=== PATIENT | male | born 1945 ===

== ENCOUNTER 2023-07-31 11:15 | Inpatient (IN) | payer OTHER ==
[~2023-07-31] VITALS: Ht 152.4 cm; Wt 0.5 kg
[2023-07-31] MEDS ORDERED: XANAX1 MG PO (13:36)
[2023-08-05] MEDS ORDERED: LATANOPROST2.5 ML (08:04)
[2023-08-05] MEDS ORDERED: ALPRAZOLAM1 MG (08:05)
[2023-08-05 12:18] LABS: HEMATOCRIT 46.6 % (39.0-48.0); HEMOGLOBIN 16.1 g/dL (13-16.00); MEAN CELL VOLUME 91.9 fL (80.0-100.00); MEAN CORPUSCULAR HEMOGLOBIN 31.7 pg (27.00-32.0); MEAN CORPUSCULAR HGB CONC 34.6 g/dl (32.0-36.0); PLATELET COUNT 187 K/uL (150-450); RED BLOOD COUNT 5.07 M/uL (4.00-6.00); RED CELL DISTRIBUTION WIDTH 13.6 % (11.5-14.5)
[2023-08-05 12:48] LABS: ALBUMIN 3.4 gm/dL (3.4-5.0); CALCIUM 8.7 mg/dL (8.5-10.1); CREATININE SERUM 0.99 mg/dL (0.70-1.30); GFR 73.3; MAGNESIUM 1.8 mg/dL (1.8-2.4); PHOSPHOROUS 3.1 mg/dL (2.5-4.9); POTASSIUM 4.49 mEq/L (3.5-5.1)
[2023-08-06 07:03] LABS: HEMATOCRIT 44.5 % (39.0-48.0); HEMOGLOBIN 15.3 g/dL (13-16.00); MEAN CELL VOLUME 94.2 fL (80.0-100.00); MEAN CORPUSCULAR HEMOGLOBIN 32.5 pg (27.00-32.0); MEAN CORPUSCULAR HGB CONC 34.5 g/dl (32.0-36.0); PLATELET COUNT 151 K/uL (150-450); RED BLOOD COUNT 4.72 M/uL (4.00-6.00); RED CELL DISTRIBUTION WIDTH 13.7 % (11.5-14.5)
[2023-08-06 07:44] LABS: ALBUMIN 3.2 gm/dL (3.4-5.0); CALCIUM 8.2 mg/dL (8.5-10.1); CREATININE SERUM 1.02 mg/dL (0.70-1.30); GFR 70.82; MAGNESIUM 1.9 mg/dL (1.8-2.4); POTASSIUM 4.13 mEq/L (3.5-5.1)
[2023-08-06 08:03] LABS: PHOSPHOROUS 1.9 mg/dL (2.5-4.9)
[2023-08-07 08:13] LABS: HEMATOCRIT 39.7 % (39.0-48.0); HEMOGLOBIN 13.9 g/dL (13-16.00); MEAN CELL VOLUME 91.9 fL (80.0-100.00); MEAN CORPUSCULAR HEMOGLOBIN 32.2 pg (27.00-32.0); RED BLOOD COUNT 4.32 M/uL (4.00-6.00); RED CELL DISTRIBUTION WIDTH 13.5 % (11.5-14.5)
[2023-08-07 08:22] LABS: PLATELET COUNT 130 K/uL (150-450)
[2023-08-07 08:41] LABS: CALCIUM 7.6 mg/dL (8.5-10.1); CREATININE SERUM 0.8 mg/dL (0.70-1.30); GFR 93.73; MAGNESIUM 1.7 mg/dL (1.8-2.4); POTASSIUM 3.91 mEq/L (3.5-5.1)
[2023-08-07 09:36] LABS: PHOSPHOROUS 1.2 mg/dL (2.5-4.9)
[2023-08-08 06:38] LABS: HEMATOCRIT 43.4 % (39.0-48.0); HEMOGLOBIN 15.1 g/dL (13-16.00); MEAN CORPUSCULAR HEMOGLOBIN 32.7 pg (27.00-32.0); MEAN CORPUSCULAR HGB CONC 34.8 g/dl (32.0-36.0); PLATELET COUNT 172 K/uL (150-450); RED BLOOD COUNT 4.62 M/uL (4.00-6.00); RED CELL DISTRIBUTION WIDTH 13.3 % (11.5-14.5)
[2023-08-08 07:40] LABS: MANUAL PLATELET COUNT 238
[2023-08-09 08:11] LABS: HEMATOCRIT 48.4 % (39.0-48.0); HEMOGLOBIN 16.8 g/dL (13-16.00); MEAN CELL VOLUME 92.1 fL (80.0-100.00); MEAN CORPUSCULAR HEMOGLOBIN 31.9 pg (27.00-32.0); MEAN CORPUSCULAR HGB CONC 34.7 g/dl (32.0-36.0); PLATELET COUNT 235 K/uL (150-450); RED BLOOD COUNT 5.25 M/uL (4.00-6.00); RED CELL DISTRIBUTION WIDTH 13.8 % (11.5-14.5)
[2023-08-09 08:42] LABS: CALCIUM 8.3 mg/dL (8.5-10.1); CREATININE SERUM 1.44 mg/dL (0.70-1.30); GFR 47.57; MAGNESIUM 2.1 mg/dL (1.8-2.4); PHOSPHOROUS 2.1 mg/dL (2.5-4.9); POTASSIUM 4.09 mEq/L (3.5-5.1)
[2023-08-09 12:03] LABS: ABG PH 7.463 (7.35-7.45); ABG pCO2 25.6 mmHg (35-45)
[2023-08-09 12:04] LABS: ABG PO2 57.9 mmHg (80-100); BICARBONATE 17.9 mmol/l (23-25); SaO2 91.1 %; Tco2 18.7 mmol/l; allen test SATISFACTORY; o2 28 %; puncture site RADIAL LEFT
[2023-08-09 13:42] LABS: T4 TOTAL 6.83 UG/DL (4.5-12.1); TSH 1.09 uIU/mL (0.358-3.74)
[2023-08-10 03:34] LABS: ABG PH 7.496 (7.35-7.45); ABG pCO2 31.8 mmHg (35-45)
[2023-08-10 03:35] LABS: ABG PO2 79.9 mmHg (80-100)
[2023-08-10 03:37] LABS: BASE EXCESS 1.6 mmol/l; SaO2 96.8 %
[2023-08-10 03:42] LABS: allen test SATISFACTORY; o2 50 %; puncture site RADIAL RIGHT
[2023-08-10 08:00] LABS: HEMATOCRIT 43.7 % (39.0-48.0); HEMOGLOBIN 15.1 g/dL (13-16.00); MEAN CELL VOLUME 93.3 fL (80.0-100.00); MEAN CORPUSCULAR HEMOGLOBIN 32.2 pg (27.00-32.0); MEAN CORPUSCULAR HGB CONC 34.5 g/dl (32.0-36.0); PLATELET COUNT 174 K/uL (150-450); RED BLOOD COUNT 4.69 M/uL (4.00-6.00)
[2023-08-10 08:31] LABS: ABG PH 7.539 (7.35-7.45); ABG PO2 78.4 mmHg (80-100); ABG pCO2 30.3 mmHg (35-45); BASE EXCESS 3.5 mmol/l; BICARBONATE 25.2 mmol/l (23-25); SaO2 97.1 %; Tco2 26.2 mmol/l; allen test SATISFACTORY; puncture site RADIAL LEFT
[2023-08-10 08:32] LABS: o2 50 %
[2023-08-10 08:47] LABS: CALCIUM 7.7 mg/dL (8.5-10.1); CREATININE SERUM 1.73 mg/dL (0.70-1.30); GFR 38.49; MAGNESIUM 2.5 mg/dL (1.8-2.4); PHOSPHOROUS 2.8 mg/dL (2.5-4.9); POTASSIUM 3.34 mEq/L (3.5-5.1)
[2023-08-11 08:20] LABS: HEMATOCRIT 40.7 % (39.0-48.0); HEMOGLOBIN 14.1 g/dL (13-16.00); MEAN CORPUSCULAR HEMOGLOBIN 31.9 pg (27.00-32.0); MEAN CORPUSCULAR HGB CONC 34.7 g/dl (32.0-36.0); PLATELET COUNT 150 K/uL (150-450); RED BLOOD COUNT 4.43 M/uL (4.00-6.00); RED CELL DISTRIBUTION WIDTH 13.9 % (11.5-14.5)
[2023-08-11 08:25] LABS: ABG PH 7.531 (7.35-7.45); ABG PO2 164.7 mmHg (80-100); BASE EXCESS 5.4 mmol/l; BICARBONATE 27.8 mmol/l (23-25); SaO2 99.7 %
[2023-08-11 08:26] LABS: Tco2 28.9 mmol/l; allen test SATISFACTORY; o2 100 %; puncture site RADIAL RIGHT
[2023-08-11 08:57] LABS: CALCIUM 7.6 mg/dL (8.5-10.1); CREATININE SERUM 1.37 mg/dL (0.70-1.30); GFR 50.38; MAGNESIUM 2.8 mg/dL (1.8-2.4); PHOSPHOROUS 2.8 mg/dL (2.5-4.9); POTASSIUM 3.43 mEq/L (3.5-5.1)
[2023-08-12 06:49] LABS: HEMATOCRIT 41.2 % (39.0-48.0); HEMOGLOBIN 14.1 g/dL (13-16.00); MEAN CORPUSCULAR HEMOGLOBIN 31.8 pg (27.00-32.0); MEAN CORPUSCULAR HGB CONC 34.2 g/dl (32.0-36.0); RED BLOOD COUNT 4.43 M/uL (4.00-6.00); RED CELL DISTRIBUTION WIDTH 13.9 % (11.5-14.5)
[2023-08-12 06:57] LABS: PLATELET COUNT 122 K/uL (150-450)
[2023-08-12 07:24] LABS: ALBUMIN 1.8 gm/dL (3.4-5.0); BILIRUBIN TOTAL 0.58 mg/dL (0.3-1.2); BILIRUBIN,CONJUGATED 0.18 mg/dL (0.0-0.2); BILIRUBIN,UNCONJUGATED 0.4 mg/dL (0.0-0.6); CALCIUM 7.6 mg/dL (8.5-10.1); CREATININE SERUM 1.16 mg/dL (0.70-1.30); GFR 61.05; MAGNESIUM 2.9 mg/dL (1.8-2.4); PHOSPHOROUS 3.4 mg/dL (2.5-4.9); POTASSIUM 3.81 mEq/L (3.5-5.1); TOTAL PROTEIN 4.5 gm/dL (6.4-8.2)
[2023-08-12 07:37] LABS: C-REACTIVE PROTEIN 7.78 MG/DL (0.00-0.29); CHOL HDL RATIO 6.5 (0-5.0)
[2023-08-12 08:26] LABS: INR 1.04; PARTIAL THROMBOPLASTIN TIME 28.5 SECONDS (22.0-34.0); PROTHROMBIN TIME 10.9 SECONDS (9.0-11.5)
[2023-08-12 10:27] LABS: UREA CLEARANCE 29.9 ML/MIN
[2023-08-12 10:54] LABS: ABG pCO2 40.5 mmHg (35-45)
[2023-08-12 10:55] LABS: BASE EXCESS -5.3 mmol/l; BICARBONATE 20.4 mmol/l (23-25); SaO2 97.3 %; Tco2 21.6 mmol/l
[2023-08-12 10:56] LABS: allen test SATISFACTORY; o2 70 %; puncture site RADIAL LEFT
[2023-08-13 07:14] LABS: HEMATOCRIT 38.7 % (39.0-48.0); HEMOGLOBIN 13.4 g/dL (13-16.00); MEAN CELL VOLUME 92.9 fL (80.0-100.00); MEAN CORPUSCULAR HGB CONC 34.5 g/dl (32.0-36.0); RED BLOOD COUNT 4.17 M/uL (4.00-6.00); RED CELL DISTRIBUTION WIDTH 14.2 % (11.5-14.5)
[2023-08-13 08:28] LABS: CALCIUM 7.2 mg/dL (8.5-10.1); CREATININE SERUM 1.01 mg/dL (0.70-1.30); GFR 71.63; MAGNESIUM 2.7 mg/dL (1.8-2.4); PHOSPHOROUS 2.9 mg/dL (2.5-4.9); POTASSIUM 3.76 mEq/L (3.5-5.1)
[2023-08-13 09:35] LABS: PLATELET COUNT 115 K/uL (150-450)
[2023-08-13 10:30] LABS: ABG PH 7.498 (7.35-7.45); ABG PO2 92.4 mmHg (80-100); ABG pCO2 37.2 mmHg (35-45); BICARBONATE 28.3 mmol/l (23-25); Tco2 29.4 mmol/l; allen test SATISFACTORY; o2 50 %; puncture site RADIAL LEFT
[2023-08-14 10:15] LABS: HEMATOCRIT 39.1 % (39.0-48.0); HEMOGLOBIN 13.3 g/dL (13-16.00); MEAN CELL VOLUME 93.1 fL (80.0-100.00); MEAN CORPUSCULAR HEMOGLOBIN 31.6 pg (27.00-32.0); RED CELL DISTRIBUTION WIDTH 14.2 % (11.5-14.5)
[2023-08-14 10:28] LABS: CALCIUM 7.3 mg/dL (8.5-10.1); CREATININE SERUM 1.01 mg/dL (0.70-1.30); GFR 71.63; MAGNESIUM 2.7 mg/dL (1.8-2.4); POTASSIUM 4.14 mEq/L (3.5-5.1)
[2023-08-14 10:32] LABS: PLATELET COUNT 129 K/uL (150-450)
[2023-08-14 11:41] LABS: ABG PH 7.482 (7.35-7.45); ABG PO2 73.5 mmHg (80-100); ABG pCO2 37.2 mmHg (35-45); BASE EXCESS 3.8 mmol/l; BICARBONATE 27.2 mmol/l (23-25); SaO2 95.9 %
[2023-08-14 11:42] LABS: Tco2 28.4 mmol/l; allen test SATISFACTORY; puncture site RADIAL LEFT
[2023-08-14 11:43] LABS: o2 40 %
[2023-08-15 09:35] LABS: ABG PH 7.492 (7.35-7.45); ABG PO2 96.1 mmHg (80-100); ABG pCO2 34.5 mmHg (35-45); SaO2 98.1 %
[2023-08-15 09:36] LABS: BASE EXCESS 2.9 mmol/l; BICARBONATE 25.8 mmol/l (23-25); Tco2 26.8 mmol/l
[2023-08-15 09:37] LABS: o2 40 %
[2023-08-15 09:38] LABS: allen test SATISFACTORY; puncture site RADIAL LEFT
[2023-08-15 12:36] LABS: ABG PH 7.469 (7.35-7.45); ABG PO2 84.8 mmHg (80-100); ABG pCO2 36.2 mmHg (35-45); BASE EXCESS 2.3 mmol/l; BICARBONATE 25.7 mmol/l (23-25); SaO2 97.1 %; Tco2 26.8 mmol/l
[2023-08-15 12:37] LABS: allen test SATISFACTORY; o2 50 %; puncture site RADIAL LEFT
[2023-08-16 07:54] LABS: BILIRUBIN TOTAL 0.76 mg/dL (0.3-1.2); CALCIUM 7.8 mg/dL (8.5-10.1); CREATININE SERUM 0.84 mg/dL (0.70-1.30); GFR 88.6; GLOBULINA 2.8 G/DL (2.4-3.5); MAGNESIUM 2.4 mg/dL (1.8-2.4); POTASSIUM 4.54 mEq/L (3.5-5.1); TOTAL PROTEIN 4.8 gm/dL (6.4-8.2)
[2023-08-16 07:55] LABS: HEMATOCRIT 43.7 % (39.0-48.0); HEMOGLOBIN 14.7 g/dL (13-16.00); MEAN CELL VOLUME 93.2 fL (80.0-100.00); MEAN CORPUSCULAR HEMOGLOBIN 31.3 pg (27.00-32.0); MEAN CORPUSCULAR HGB CONC 33.6 g/dl (32.0-36.0); PLATELET COUNT 167 K/uL (150-450); RED BLOOD COUNT 4.69 M/uL (4.00-6.00); RED CELL DISTRIBUTION WIDTH 13.9 % (11.5-14.5)
[2023-08-16 21:46] LABS: PH,URINE 5.5; URINE BILIRRUBIN SMALL (NEGATIVE); URINE BLOOD LARGE; URINE GLUCOSE NEGATIVE (NEGATIVE); URINE LEUKOCYTE NEGATIVE; URINE NITRATE NEGATIVE; URINE PROTEIN 30 (NEGATIVE); URINE UROBILINOGEN 0.2 E.U./dl
[2023-08-16 21:53] LABS: URINE APPEARANCE SL CLOUDY; URINE COLOR YELLOW
[2023-08-16 21:54] LABS: URINE MUCUS MODERATE; URINE RBC LOADED /HPF
[2023-08-16 21:55] LABS: URINE BACTERIA MODERATE
[2023-08-16 21:58] LABS: URINE CRYSTALS MANY /HPF; URINE EPITHELIAL CELLS 0-4 /HPF
[2023-08-16 22:01] LABS: URINE YEAST FEW /hpf
[2023-08-16 22:11] LABS: URINE WBC 0-2 /hpf
[2023-08-18 07:55] LABS: ALBUMIN 1.9 gm/dL (3.4-5.0); BILIRUBIN TOTAL 0.59 mg/dL (0.3-1.2); CALCIUM 7.8 mg/dL (8.5-10.1); CREATININE SERUM 0.83 mg/dL (0.70-1.30); GFR 89.84; GLOBULINA 2.7 G/DL (2.4-3.5); POTASSIUM 4.68 mEq/L (3.5-5.1); TOTAL PROTEIN 4.6 gm/dL (6.4-8.2)
[2023-08-18 07:56] LABS: HEMATOCRIT 39.9 % (39.0-48.0); HEMOGLOBIN 13.5 g/dL (13-16.00); MEAN CELL VOLUME 93.4 fL (80.0-100.00); MEAN CORPUSCULAR HEMOGLOBIN 31.7 pg (27.00-32.0); MEAN CORPUSCULAR HGB CONC 33.9 g/dl (32.0-36.0); PLATELET COUNT 148 K/uL (150-450); RED BLOOD COUNT 4.27 M/uL (4.00-6.00); RED CELL DISTRIBUTION WIDTH 13.9 % (11.5-14.5)
[2023-08-18 08:44] LABS: INR 1.04; PARTIAL THROMBOPLASTIN TIME 30.3 SECONDS (22.0-34.0); PROTHROMBIN TIME 10.9 SECONDS (9.0-11.5)
[2023-08-19 07:54] LABS: INR 1.05; PARTIAL THROMBOPLASTIN TIME 28.5 SECONDS (22.0-34.0)
[2023-08-19 07:56] LABS: ALBUMIN 1.9 gm/dL (3.4-5.0); BILIRUBIN TOTAL 0.54 mg/dL (0.3-1.2); BILIRUBIN,CONJUGATED 0.15 mg/dL (0.0-0.2); BILIRUBIN,UNCONJUGATED 0.39 mg/dL (0.0-0.6); CALCIUM 7.8 mg/dL (8.5-10.1); CHOL HDL RATIO 6.6 (0-5.0); CREATININE SERUM 0.72 mg/dL (0.70-1.30); GFR 105.85; GLOBULINA 2.7 G/DL (2.4-3.5); MAGNESIUM 2.5 mg/dL (1.8-2.4); POTASSIUM 4.73 mEq/L (3.5-5.1); TOTAL PROTEIN 4.6 gm/dL (6.4-8.2)
[2023-08-19 08:14] LABS: HEMOGLOBIN 13.1 g/dL (13-16.00); MEAN CELL VOLUME 94.5 fL (80.0-100.00); MEAN CORPUSCULAR HEMOGLOBIN 32.4 pg (27.00-32.0); MEAN CORPUSCULAR HGB CONC 34.3 g/dl (32.0-36.0); PLATELET COUNT 172 K/uL (150-450); RED BLOOD COUNT 4.03 M/uL (4.00-6.00); RED CELL DISTRIBUTION WIDTH 13.7 % (11.5-14.5)
[2023-08-19 13:35] LABS: UREA CLEARANCE 44.8 ML/MIN
[2023-08-20 11:09] LABS: HEMATOCRIT 38.4 % (39.0-48.0); HEMOGLOBIN 12.9 g/dL (13-16.00); MEAN CELL VOLUME 94.2 fL (80.0-100.00); MEAN CORPUSCULAR HEMOGLOBIN 31.7 pg (27.00-32.0); MEAN CORPUSCULAR HGB CONC 33.7 g/dl (32.0-36.0); PLATELET COUNT 190 K/uL (150-450); RED BLOOD COUNT 4.08 M/uL (4.00-6.00); RED CELL DISTRIBUTION WIDTH 13.4 % (11.5-14.5)
[2023-08-20 11:22] LABS: CALCIUM 7.4 mg/dL (8.5-10.1); CREATININE SERUM 0.77 mg/dL (0.70-1.30); GFR 97.96; MAGNESIUM 2.3 mg/dL (1.8-2.4); POTASSIUM 5.19 mEq/L (3.5-5.1)
[2023-08-21 07:37] LABS: HEMATOCRIT 37.5 % (39.0-48.0); HEMOGLOBIN 12.7 g/dL (13-16.00); MEAN CELL VOLUME 93.6 fL (80.0-100.00); MEAN CORPUSCULAR HEMOGLOBIN 31.7 pg (27.00-32.0); MEAN CORPUSCULAR HGB CONC 33.8 g/dl (32.0-36.0); PLATELET COUNT 178 K/uL (150-450); RED BLOOD COUNT 4.01 M/uL (4.00-6.00); RED CELL DISTRIBUTION WIDTH 13.4 % (11.5-14.5)
[2023-08-21 08:02] LABS: CREATININE SERUM 0.76 mg/dL (0.70-1.30); GFR 99.45; MAGNESIUM 2.2 mg/dL (1.8-2.4); PHOSPHOROUS 3.6 mg/dL (2.5-4.9); POTASSIUM 4.73 mEq/L (3.5-5.1)
[2023-08-23 06:13] LABS: HEMATOCRIT 37.6 % (39.0-48.0); HEMOGLOBIN 12.9 g/dL (13-16.00); MEAN CELL VOLUME 93.7 fL (80.0-100.00); MEAN CORPUSCULAR HEMOGLOBIN 32.1 pg (27.00-32.0); MEAN CORPUSCULAR HGB CONC 34.3 g/dl (32.0-36.0); PLATELET COUNT 193 K/uL (150-450); RED BLOOD COUNT 4.01 M/uL (4.00-6.00); RED CELL DISTRIBUTION WIDTH 13.8 % (11.5-14.5)
[2023-08-23 06:55] LABS: CALCIUM 7.9 mg/dL (8.5-10.1); CREATININE SERUM 0.83 mg/dL (0.70-1.30); GFR 89.84; PHOSPHOROUS 2.9 mg/dL (2.5-4.9); POTASSIUM 4.64 mEq/L (3.5-5.1)
[2023-08-23] MEDS ORDERED: ALPRAZOLAM1 MG PO (13:34)
[2023-08-23] MEDS ORDERED: HYOSCYAMINE0.125 M1 SL (13:34)
[2023-08-23] MEDS ORDERED: FAMOTIDINE20 MG PO (13:34)
[2023-08-23] MEDS ORDERED: LOPRESSOR25 MG PO (13:34)
[2023-08-23] MEDS ORDERED: TAMS0.4C PO (13:34)
== END 2023-08-23 18:59 | DRG 329 ==
LOC: O/R 08-05 05:17 → SURH 08-05 05:17 → ICU 08-09 21:44 → SURH 08-21 15:01
PROVIDERS: Colon & Rectal Surgery; Internal Medicine Geriatric Medicine; Internal Medicine Infectious Disease; ADMIT Surgery; ATTEND Surgery
PROC: 07BB4ZZ Excision of Mesenteric Lymphatic, Percutaneous Endoscopic Approach (ICD-10-PCS; 2023-08-05)
PROC: 0DN84ZZ Release Small Intestine, Percutaneous Endoscopic Approach (ICD-10-PCS; 2023-08-05)
PROC: 0DTF4ZZ Resection of Right Large Intestine, Percutaneous Endoscopic Approach (ICD-10-PCS; principal; 2023-08-05 08:30)
PROC: 02HV33Z Insertion of Infusion Device into Superior Vena Cava, Percutaneous Approach (ICD-10-PCS; 2023-08-09)
PROC: 4A12X4Z Monitoring of Cardiac Electrical Activity, External Approach (ICD-10-PCS; 2023-08-09)
PROC: 0BH17EZ Insertion of Endotracheal Airway into Trachea, Via Natural or Artificial Opening (ICD-10-PCS; 2023-08-10)
PROC: 5A1955Z Respiratory Ventilation, Greater than 96 Consecutive Hours (ICD-10-PCS; 2023-08-10)
PROC: B54DZZZ Ultrasonography of Bilateral Lower Extremity Veins (ICD-10-PCS; 2023-08-12)
PROC: BW21YZZ Computerized Tomography (CT Scan) of Abdomen and Pelvis using Other Contrast (ICD-10-PCS; 2023-08-13)
PROC: BW24YZZ Computerized Tomography (CT Scan) of Chest and Abdomen using Other Contrast (ICD-10-PCS; 2023-08-13)
DX: D37.4 Neoplasm of uncertain behavior of colon (principal); A41.9 Sepsis, unspecified organism; J95.821 Acute postprocedural respiratory failure; I26.99 Other pulmonary embolism without acute cor pulmonale; I47.10 Supraventricular tachycardia, unspecified; K91.89 Other postprocedural complications and disorders of digestive system; K56.7 Ileus, unspecified; N17.9 Acute kidney failure, unspecified; R19.4 Change in bowel habit; R59.0 Localized enlarged lymph nodes; K66.0 Peritoneal adhesions (postprocedural) (postinfection); I48.91 Unspecified atrial fibrillation; I10 Essential (primary) hypertension; E78.5 Hyperlipidemia, unspecified; K52.9 Noninfective gastroenteritis and colitis, unspecified